=== PATIENT | female | born 1980 | race Hispanic/Latino ===

== ENCOUNTER 2017-10-07 11:10 | Day surgery (SDC) | payer BC ==
[2017-10-07] MEDS ORDERED: Sodium Chloride 0.9% 1,000 ML IV ONE (11:26)
[2017-10-07 11:49] LABS: BASO # 0.1 K/uL (0.0-0.2); BASO % 0.8 % (0.0-2.0); EOS # 0.1 K/uL (0.0-0.7); EOS % 1.4 % (0.0-4.0); HEMATOCRIT 40.9 % (34.0-47.0); LYMPH % 22.9 % (20.0-40.0); MEAN CELL VOLUME 91.7 fL (81.0-99.0); MEAN CORPUSCULAR HEMOGLOBIN 32.9 pg (27.0-31.0); MEAN CORPUSCULAR HGB CONC 35.9 g/dL (33.0-37.0); MEAN PLATELET VOLUME 7.7 fL (7.2-11.7); MONO # 0.8 K/uL (0.0-0.8); MONO % 9.2 % (0.0-10.0); RED CELL DISTRIBUTION WIDTH 13.9 % (11.5-14.5); WHITE BLOOD COUNT 8.6 K/uL (4.8-10.8)
[2017-10-07 11:58] LABS: RBC URINE 25 /hpf (0-3); URINE BACTERIA RARE (<OCC); URINE BILIRUBIN NEGATIVE (NEGATIVE); URINE BLOOD 3+ (NEGATIVE); URINE COLOR Straw (YELLOW); URINE GLUCOSE (UA) NORMAL (Normal); URINE KETONE NEGATIVE (NEGATIVE); URINE LEUKOCYTE ESTERASE NEG Leu/uL (Negative); URINE PROTEIN NEGATIVE (NEGATIVE); URINE UROBILINOGEN NORMAL mg/dL (0.2-1.0); WBC URINE 3 /hpf (0-5)
[2017-10-07 12:01] LABS: ALB/GLOB RATIO 1.3 (1.0-2.1); ALKALINE PHOSPHATASE 55 U/L (38-126); ALT/SGPT 24 U/L (9-52); AST/SGOT 24 U/L (14-36); BILIRUBIN,TOTAL 0.8 mg/dL (0.2-1.3); BLOOD UREA NITROGEN 12 mg/dL (7-17); CALCIUM 9.1 mg/dl (8.6-10.4); CARBON DIOXIDE 27 mmol/L (22-30); CHLORIDE 98 mmol/L (98-107); GFR AFRICAN-AMERICAN > 60; GLUCOSE,RANDOM 83 mg/dL (65-105); POTASSIUM 3.8 mmol/L (3.6-5.2); SODIUM 132 mmol/L (132-148); TOTAL PROTEIN 7.2 g/dL (6.3-8.3)
--- NOTE | 2017-10-07 12:05 | C.PDOC ---
History Of Present Illness 37 y/o female presents to the ER complaining of vaginal bleeding which began 2 days ago. Patient reports she went to the office of Dr. Domingo Emmanuel and she had an ultrasound that shows demise. Patient states that she is 10-11 weeks , G2PO. The first was terminated secondary to genetic abnormalities of the fetus. Time Seen by Provider: 10/07/17 11:15 Chief Complaint (Nursing): Abdominal Pain History Per: Patient History/Exam Limitations: no limitations Onset/Duration Of Symptoms: Days Current Symptoms Are (Timing): Still Present Severity: Moderate Past Medical History Reviewed: Historical Data, Nursing Documentation, Vital Signs Vital Signs: Last Vital Signs Temp 98 F 10/07/17 18:35 Pulse 62 10/07/17 18:35 Resp 18 10/07/17 18:35 BP 127/66 10/07/17 18:35 Pulse Ox 100 10/07/17 19:24 - Medical History PMH: Migraine Surgical History: No Surg Hx Family History: States: No Known Family Hx - Social History Hx Alcohol Use: No Hx Substance Use: No - Immunization History Hx Tetanus Toxoid Vaccination: No Hx Influenza Vaccination: No Hx Pneumococcal Vaccination: No Review Of Systems Except As Marked, All Systems Reviewed And Found Negative. Genitourinary: Positive for: Vaginal Bleeding Physical Exam - Physical Exam Appears: Non-toxic, No Acute Distress Skin: Normal Color, Warm Head: Atraumatic, Normacephalic Nose: Normal Oral Mucosa: Moist Neck: Supple Cardiovascular: Rhythm Regular Respiratory: Normal Breath Sounds, No Accessory Muscle Use Pelvic: Other (Exam Deferred) Neurological/Psych: Oriented x3, Normal Speech, Normal Cognition ED Course And Treatment - Laboratory Results Result Diagrams: 10/07/17 11:43 10/07/17 11:43 O2 Sat by Pulse Oximetry: 100 (RA) Pulse Ox Interpretation: Normal Medical Decision Making Medical Decision Making: Impression: Vaginal Bleeding Updates: 11:51 - Discussed case with SUPERVIS[employer] Dr. Emmanuel who requested that the patient undergo pre-op lab work and be admitted in [facility] under Dr. Emmanuel's name for D&C. Disposition Discussed With : Doctor Will See Patient In The: Hospital - Disposition Disposition: HOSPITALIZED Disposition Time: 11:50 Condition: STABLE - Clinical Impression Clinical Impression: Missed - PA / ROLL SETTER / Resident Statement MD/DO has reviewed & agrees with the documentation as recorded. - Scribe Statement The provider has reviewed the documentation as recorded by the Scribe Kolby Maurer Provider Attestation All medical record entries made by the Josepibe were at my direction and personally dictated by me. I have reviewed the chart and agree that the record accurately reflects my personal performance of the history, physical exam, medical decision making, and the department course for this patient. I have also personally directed, reviewed, and agree with the discharge instructions and disposition.
[2017-10-07] MEDS ORDERED: Sodium Chloride 0.9% 1,000 ML ONE (12:18)
[2017-10-07] MEDS ORDERED: Doxycycline 100 mg Inj ONE (12:50)
--- NOTE | 2017-10-07 14:10 | CP.PCM.HP ---
Past Patient History - Past Social History Smoking Status: Never Smoked - NEUROLOGICAL Hx Migraine: Yes - PSYCHIATRIC Hx Substance Use: No - SURGICAL HISTORY Hx Orthopedic Surgery: Yes (Right Knee surgery) Other/Comment: TOP - ANESTHESIA Hx Anesthesia: Yes Hx Anesthesia Reactions: No Meds Allergies/Adverse Reactions: Allergies Allergy/AdvReac Type Severity Reaction Status Date / Time Penicillins Allergy Verified 10/07/17 11:30 Sulfa (Sulfonamide Allergy Verified 10/07/17 11:30 Antibiotics) Results - Vital Signs Recent Vital Signs: Last Vital Signs Temp 98.1 F 10/07/17 12:38 Pulse 88 10/07/17 12:38 Resp 19 10/07/17 12:38 BP 140/71 10/07/17 12:38 Pulse Ox 97 10/07/17 12:38 - Labs Result Diagrams: 10/07/17 11:43 10/07/17 11:43 Labs: Laboratory Results - last 24 hr 10/07/17 10/07/17 10/07/17 11:37 11:43 11:43 WBC 8.6 RBC 4.46 Hgb 14.7 Hct 40.9 MCV 91.7 MCH 32.9 H MCHC 35.9 RDW 13.9 Plt Count 321 MPV 7.7 Neut % (Auto) 65.7 Lymph % (Auto) 22.9 [place] % (Auto) 9.2 Eos % (Auto) 1.4 Baso % (Auto) 0.8 Neut # 5.7 Lymph # 2.0 [place] # 0.8 Eos # 0.1 Baso # 0.1 PT 11.5 INR 1.0 APTT 26 Sodium Potassium Chloride Carbon Dioxide Anion Gap BUN Creatinine Est GFR ( Amer) Est GFR (Non-Af Amer) Random Glucose Calcium Total Bilirubin AST ALT Alkaline Phosphatase Total Protein Albumin Globulin Albumin/Globulin Ratio Urine Color Straw Urine Clarity Clear Urine pH 6.0 Ur Specific [place] 1.006 Urine Protein Negative Urine Glucose (UA) Normal Urine Ketones Negative Urine Blood 3+ H Urine Nitrate Negative Urine Bilirubin Negative Urine Urobilinogen Normal Ur Leukocyte Esterase Neg Urine WBC (Auto) 3 Urine RBC (Auto) 25 H Ur Squamous Epith Cells 4 Urine Bacteria Rare Blood Type Antibody Screen 10/07/17 10/07/17 11:43 11:43 WBC RBC Hgb Hct MCV MCH MCHC RDW Plt Count MPV Neut % (Auto) Lymph % (Auto) [place] % (Auto) Eos % (Auto) Baso % (Auto) Neut # Lymph # [place] # Eos # Baso # PT INR APTT Sodium 132 Potassium 3.8 Chloride 98 Carbon Dioxide 27 Anion Gap 11 BUN 12 Creatinine 0.6 L Est GFR ( Amer) > 60 Est GFR (Non-Af Amer) > 60 Random Glucose 83 Calcium 9.1 Total Bilirubin 0.8 AST 24 ALT 24 Alkaline Phosphatase 55 Total Protein 7.2 Albumin 4.1 Globulin 3.1 Albumin/Globulin Ratio 1.3 Urine Color Urine Clarity Urine pH Ur Specific [place] Urine Protein Urine Glucose (UA) Urine Ketones Urine Blood Urine Nitrate Urine Bilirubin Urine Urobilinogen Ur Leukocyte Esterase Urine WBC (Auto) Urine RBC (Auto) Ur Squamous Epith Cells Urine Bacteria Blood Type A POSITIVE Antibody Screen Negative
--- NOTE | 2017-10-07 14:27 | CP.PCM.HP ---
History of Present Illness - History of Present Illness History of Present Illness: 33 y/o @ 11 wks GA c/o VB x 2 days, pt reports intiaal spotting followed by passign clots with back pain. pt deneis any fever, chills, nause, vmiting, CP, SOB. Pt was seen earlier this morning and diagnosed with missed . pt was then referred to ER due to vaginal bleeding. Ante: [facility] Dr Emmanuel, Informed today panoroma testing T18, s/p genetic counseling OB: Poor ob hx with eto 19 weeks secondary to 45 XXY CRT: Denies hx of abnormal pap, fibroids, STI, reprots hx of ovarin cyast PMH: Migraines PSH: denies FHX: non contributory SHX: negative eoth/tobacco/drugs MEDS: see med rec, PNV ALLERGY: PCN, Sulfa Present on Admission - Present on Admission Any Indicators Present on Admission: No Review of Systems - Constitutional Constitutional: As Per HPI - EENT Nose/Mouth/Throat: As Per HPI - Cardiovascular Cardiovascular: As Per HPI - Respiratory Respiratory: As Per HPI - Gastrointestinal Gastrointestinal: As Per HPI - Genitourinary Genitourinary: As Per HPI - Reproductive: Female Reproductive:Female: Cycle >35 Days Past Patient History - Past Social History Smoking Status: Never Smoked Drugs: Denies - NEUROLOGICAL Hx Migraine: Yes - PSYCHIATRIC Hx Substance Use: No - SURGICAL HISTORY Hx Orthopedic Surgery: Yes (Right Knee surgery) Other/Comment: TOP - ANESTHESIA Hx Anesthesia: Yes Hx Anesthesia Reactions: No Meds Allergies/Adverse Reactions: Allergies Allergy/AdvReac Type Severity Reaction Status Date / Time Penicillins Allergy Verified 10/07/17 11:30 Sulfa (Sulfonamide Allergy Verified 10/07/17 11:30 Antibiotics) Physical Exam - Constitutional Appears: Well, No Acute Distress - Head Exam Head Exam: ATRAUMATIC, NORMAL INSPECTION - Eye Exam Eye Exam: PERRL Pupil Exam: NORMAL ACCOMODATION - ENT Exam ENT Exam: Mucous Membranes Moist, Normal Exam - Neck Exam Neck exam: Positive for: Normal Inspection - Respiratory Exam Respiratory Exam: Clear to Auscultation Bilateral, NORMAL BREATHING PATTERN - Cardiovascular Exam Cardiovascular Exam: +S1, +S2 - GI/Abdominal Exam GI & Abdominal Exam: Soft Additional comments: non tender, no guarding, no rebound tenderness, no rigidity - Exam External exam: NORMAL EXTERNAL EXAM Additional comments: External Gential: no gross abnormalits Vagina: dark red blood in posteiro forix Ceriv: closed, Uteurs; Non tender, 10-12 week Adnexa; non tender, no masses b/l Anus/ Perienum: grossly normal - Extremities Exam Extremities exam: Positive for: normal inspection Results - Vital Signs Recent Vital Signs: Last Vital Signs Temp 98.2 F 10/07/17 13:15 Pulse 64 10/07/17 13:15 Resp 20 10/07/17 13:15 BP 136/82 10/07/17 13:15 Pulse Ox 100 10/07/17 13:15 - Labs Result Diagrams: 10/07/17 11:43 10/07/17 11:43 Labs: Laboratory Results - last 24 hr 10/07/17 10/07/17 10/07/17 11:37 11:43 11:43 WBC 8.6 RBC 4.46 Hgb 14.7 Hct 40.9 MCV 91.7 MCH 32.9 H MCHC 35.9 RDW 13.9 Plt Count 321 MPV 7.7 Neut % (Auto) 65.7 Lymph % (Auto) 22.9 [place] % (Auto) 9.2 Eos % (Auto) 1.4 Baso % (Auto) 0.8 Neut # 5.7 Lymph # 2.0 [place] # 0.8 Eos # 0.1 Baso # 0.1 PT 11.5 INR 1.0 APTT 26 Sodium Potassium Chloride Carbon Dioxide Anion Gap BUN Creatinine Est GFR ( Amer) Est GFR (Non-Af Amer) Random Glucose Calcium Total Bilirubin AST ALT Alkaline Phosphatase Total Protein Albumin Globulin Albumin/Globulin Ratio Urine Color Straw Urine Clarity Clear Urine pH 6.0 Ur Specific [place] 1.006 Urine Protein Negative Urine Glucose (UA) Normal Urine Ketones Negative Urine Blood 3+ H Urine Nitrate Negative Urine Bilirubin Negative Urine Urobilinogen Normal Ur Leukocyte Esterase Neg Urine WBC (Auto) 3 Urine RBC (Auto) 25 H Ur Squamous Epith Cells 4 Urine Bacteria Rare Blood Type Antibody Screen 10/07/17 10/07/17 11:43 11:43 WBC RBC Hgb Hct MCV MCH MCHC RDW Plt Count MPV Neut % (Auto) Lymph % (Auto) [place] % (Auto) Eos % (Auto) Baso % (Auto) Neut # Lymph # [place] # Eos # Baso # PT INR APTT Sodium 132 Potassium 3.8 Chloride 98 Carbon Dioxide 27 Anion Gap 11 BUN 12 Creatinine 0.6 L Est GFR ( Amer) > 60 Est GFR (Non-Af Amer) > 60 Random Glucose 83 Calcium 9.1 Total Bilirubin 0.8 AST 24 ALT 24 Alkaline Phosphatase 55 Total Protein 7.2 Albumin 4.1 Globulin 3.1 Albumin/Globulin Ratio 1.3 Urine Color Urine Clarity Urine pH Ur Specific [place] Urine Protein Urine Glucose (UA) Urine Ketones Urine Blood Urine Nitrate Urine Bilirubin Urine Urobilinogen Ur Leukocyte Esterase Urine WBC (Auto) Urine RBC (Auto) Ur Squamous Epith Cells Urine Bacteria Blood Type A POSITIVE Antibody Screen Negative - Impressions Impression: US 10/07/2017 CRL 28.6 mm 9.5 wks on CRL, on lLMP 11.3 Dx Missed , No heart beat Rh Postiive Assessment & Plan (1) Missed Assessment and Plan: with Missed ~ 10 wks 1. staff weapons officer to OR for Suction DC r/b/a/i of expectant vs medical vs surgical rohan dw/ aptietn pt opted for dxc conesnt obtain 2. npo, ivf 3. preop labs 4. type and screen 5. scds, vaginal prep Status: Acute
[2017-10-07] MEDS ORDERED: Lactated Ringer's 1,000 ML IV ONE ×2 (15:34)
[2017-10-07] MEDS ORDERED: Midazolam 2 MG/2 ML VIAL ONE (15:36)
[2017-10-07] MEDS ORDERED: Lidocaine Hydrochloride 5 ML INJ ONE (15:36)
[2017-10-07] MEDS ORDERED: Propofol 10 mg/ml Inj (20 ML) ONE (15:36)
[2017-10-07] MEDS ORDERED: HYDROmorphone 0.5 mg/0.5 ml ISec IVP PRN (17:00)
--- NOTE | 2017-10-07 17:17 | PCM.SURG1 ---
Surgeon's Initial Post Op Note - Surgeon's Notes Surgeon: Ciara Emmanuel MD Grill Associate: none Type of Anesthesia: General LMA Pre-Operative Diagnosis: Missed 10 weeks Operative Findings: 10 week size uterus, no adnexal masses, moderate products on conception, 9 suction curved currette used Post-Operative Diagnosis: same as above Operation Performed: Suction Dilation and Currettage Specimen/Specimens Removed: products of conception Estimated Blood Loss: EBL {In ML}: 20 Blood Products Given: N/A Drains Used: No Drains Post-Op Condition: Good Date of Surgery/Procedure: 10/07/17 Time of Surgery/Procedure: 17:00
[2017-10-07 17:37] VITALS: O2SAT 100
[2017-10-07 18:15] VITALS: RESP 18
[2017-10-07 18:41] VITALS: BP 127/66; PULSE 62; TEMP 98
--- NOTE | 2017-10-07 23:34 | OP ---
PROCEDURE DATE: 10/07/2017 PREOPERATIVE DIAGNOSIS: Missed , 10 weeks POSTOPERATIVE DIAGNOSIS: Missed , 10 weeks PROCEDURE: Suction dilation and curettage. SURGEON: Ciara Emmanuel MD. TYPE OF ANESTHESIA: General LMA. OPERATIVE FINDINGS: A 10-week sized uterus. No adnexal masses, moderate amount of products of conception. A 9 mm suction curette was used. ESTIMATED BLOOD LOSS: 20 mL BLOOD PRODUCTS: None. COMPLICATIONS: None. SPECIMENS REMOVED: Products of conception. DESCRIPTION OF PROCEDURE: The patient was taken to the operating room where she was given general anesthesia. Once the anesthesia was induced, she was prepped and draped in the usual sterile fashion with the legs supported using stirrups. Time-out confirmed correct patient and correct procedure. The patient was given preoperative prophylactic antibiotic. Following this, bimanual exam was performed with above-mentioned findings. A Gusman retractor was placed in the anteroposterior fornix of the vagina. The cervix was adequately visualized. Following, the cervix appeared to be slightly dilated with blood clots noted at the cervical os, and the product of conception. The cervix was then sequentially dilated with a Baljinder dilator to allow for introduction of the 9-mm suction curette, which was advanced into the fundus. The suction was then activated and rotated 360 degrees until all products of conception were removed. This was done 4 times. Following this, a gentle curettage was done until a gritty texture was noted. Following this, the suction curettage was then reinserted and advanced to the fundus and rotated 360 degrees until all products of conception were removed and the air bubbles were noted. Prior to the cervical dilation, a toothed tenaculum was placed on the anterior lip of the cervix. A the completion of the suction curettage and removal of all products, the toothed tenaculum was then removed and bleeding was noted at the tenaculum site. Pressure was then applied with the ring forceps. After 5 minutes, there was still slight oozing noted. So, a 2-0 Chromic suture was used. Good hemostasis was noted. There was good hemostasis at the end of the procedure. All instruments were removed. At the end of the procedure, all needle, sponge, and instrument counts were noted and correct x2. The patient tolerated the procedure well and was transferred to the recovery room in stable condition. Ciara Emmanuel MD [facility] # [id number]
--- NOTE | 2017-10-08 18:39 | CARD ---
APPROVED REPORT EKG Measurement Heart [id number] <Conclusion> Normal sinus rhythm Normal ECG
== END 2017-10-07 18:43 | disposition home or self-care (01) ==
LOC: C.ER 11:10 → C.SDS 11:10
PROVIDERS: ATTEND Obstetrics & Gynecology
DX: O02.1 Missed abortion (principal)
CPT/HCPCS: 59820; 80053; 81001; 85025; 85610; 85730; 86850; 86900; 88233; 88262; J1170; J1885; J2250; J2405; J2704; J2765; J3010; J7040; J7120

== ENCOUNTER 2017-12-29 20:19 | Emergency (ER) | payer BC ==
[2017-12-29 20:47] VITALS: BP 144/89; PULSE 95; TEMP 97.6; O2SAT 99
[2017-12-29 22:51] LABS: SQUAMOUS EPITHIAL 18 /hpf (0-5); URINE BACTERIA FEW (<OCC); URINE BILIRUBIN NEGATIVE (NEGATIVE); URINE BLOOD NEGATIVE (NEGATIVE); URINE CLARITY Hazy (Clear); URINE COLOR Yellow (YELLOW); URINE GLUCOSE (UA) NORMAL (Normal); URINE LEUKOCYTE ESTERASE 3+ Leu/uL (Negative); URINE PROTEIN NEGATIVE (NEGATIVE)
[2017-12-29 22:52] LABS: HCG,QUALITATIVE URINE NEGATIVE (NEGATIVE)
[2017-12-29] MEDS ORDERED: Lidocaine 5% Patch TD STA (23:10)
--- NOTE | 2017-12-29 23:10 | C.PDOC ---
History Of Present Illness 37 year old female presents to the ED for evaluation of lower back pain that radiates to her left hip for 1 week. Patient has had a history of herniated discs since 2010, and has undergone physical therapy and acupuncture. Patient states her pain has increased within the past week and presents for further evaluation. No change in symptoms from previous exacerbations, no new symptoms. She denies new trauma/injuries, urinary/bowel incontinence, upper/lower extremity numbness/weakness. Time Seen by Provider: 12/29/17 22:01 Chief Complaint (Nursing): Back Pain History Per: Patient History/Exam Limitations: no limitations Onset/Duration Of Symptoms: Other (1 week ) Current Symptoms Are (Timing): Still Present Quality Of Discomfort: "Pain" Previous Symptoms: Back Pain (lower ) Associated Symptoms: denies: Incontinence, New Weakness, New Numbness Additional History Per: Patient Past Medical History Reviewed: Historical Data, Nursing Documentation, Vital Signs Vital Signs: Last Vital Signs Temp 97.6 F 12/29/17 20:43 Pulse 95 H 12/29/17 20:43 Resp 20 12/29/17 23:36 BP 144/89 12/29/17 20:43 Pulse Ox 99 12/30/17 03:44 - Medical History PMH: Migraine Surgical History: No Surg Hx Family History: States: Unknown Family Hx - Social History Hx Alcohol Use: No Hx Substance Use: No - Immunization History Hx Tetanus Toxoid Vaccination: No Hx Influenza Vaccination: No Hx Pneumococcal Vaccination: No Review Of Systems Genitourinary: Negative for: Incontinence Musculoskeletal: Positive for: Back Pain (lower ), Other (left hip pain ) Neurological: Negative for: Weakness, Numbness, Other (head injury, LOC ) Physical Exam - Physical Exam Appears: Non-toxic, No Acute Distress Skin: Normal Color, Warm, Dry Head: Atraumatic, Normacephalic Eye(s): bilateral: Normal Inspection, EOMI Nose: Normal Oral Mucosa: Moist Neck: Normal ROM, Supple Chest: Symmetrical, No Deformity, No Tenderness Cardiovascular: Rhythm Regular Respiratory: Normal Breath Sounds, No Rales, No Rhonchi, No Wheezing Gastrointestinal/Abdominal: Soft, No Tenderness Back: No CVA Tenderness, No Vertebral Tenderness, Paraspinal Tenderness (lower paralumbar tenderness) Extremity: Normal ROM, Tenderness (to left buttock ), Capillary Refill (less than 2 seconds ) Extremity: Bilateral: Atraumatic Neurological/Psych: Oriented x3, Normal Speech, Normal Cognition Gait: Steady ED Course And Treatment O2 Sat by Pulse Oximetry: 99 (on RA ) Pulse Ox Interpretation: Normal Progress Note: UA ordered and reviewed. Lidoderm TD, Macrobid PO, Toradol IM and Valium PO administered. On reassessment, patient is resting comfortably, back pain has improved and she is requesting to go home. No fever, no bony tenderness, no numbness, no weakness, or abdominal pain. Patient is ambulatory in the emergency department with no signs of discomfort. Patient was advised to follow up with their physician in 1-3 days. Disposition - Disposition Disposition: HOME/ ROUTINE Disposition Time: 23:07 Condition: STABLE Additional Instructions: Follow up with primary medical doctor in 1-3 days without fail for further evaluation. Take medications as prescribed. Return to the emergency department at any time if symptoms persist or worsen. Prescriptions: Cyclobenzaprine [Cyclobenzaprine HCl] 10 mg PO TID PRN #20 tab PRN Reason: Muscle Spasm Nitrofurantoin Macrocrystals [Macrobid] 1 cap PO BID #14 cap traMADol [Ultram] 50 mg PO Q8 #20 tab Instructions: Low Back Pain (DC) Forms: [employer] (Welsh) - Clinical Impression Clinical Impression: Low back pain - PA / PROBE OPERATOR / Resident Statement MD/DO has reviewed & agrees with the documentation as recorded. - Scribe Statement The provider has reviewed the documentation as recorded by the Scribe (Cyndi Emmanuel) All medical record entries made by the Scribe were at my direction and personally dictated by me. I have reviewed the chart and agree that the record accurately reflects my personal performance of the history, physical exam, medical decision making, and the department course for this patient. I have also personally directed, reviewed, and agree with the discharge instructions and disposition.
[2017-12-29] MEDS ORDERED: Lidocaine 5% Patch TD ONE (23:15)
[2017-12-29 23:37] VITALS: RESP 20
== END 2017-12-29 23:36 | disposition home or self-care (01) ==
LOC: C.ER 20:19
DX: M54.5 Low back pain (principal)
CPT/HCPCS: 81001; 84703; 96372; 99283; J1885

== ENCOUNTER 2019-02-19 22:15 | Emergency (ER) | payer BC ==
--- NOTE | 2019-02-19 23:18 | OBHP ---
Datetime: 02/19/2019 23:12 IP Adm Impression: Term, intrauterine IP Admit Plan: Discharge home Admit Comment, IP Provider: A/P: 38 yo at 36 wks with IVF c/o decreased FM - stable, afebrile - BPP 8/8 by bedside U/S - Pt and showed baby movements, reassured - labor precautions given - pt deferred vaginal exam - d/c home General - PN: Normal FHR - Baseline A Provider: 140 Contraction Comments Provider: quiet EGA AdmitDate IP: 36.0 Vital Signs Provider: Reviewed IP Chief Complaint: Decreased movement NICHD Variability Prov Fetus A: Moderate 6-25bpm NICHD Accel Fetus A IP Provider: [id number] FHR Category Provider Fetus A: Category I NICHD Decel Fetus A IP Provider: None
[2019-02-20 03:54] VITALS: BP 141/83; PULSE 67; RESP 20; TEMP 98.1
== END 2019-02-19 23:40 | disposition home or self-care (01) ==
LOC: C.EROB 22:15
DX: O36.8130 Decreased fetal movements, third trimester, not applicable or unspecified (principal); Z3A.36 36 weeks gestation of pregnancy